=== PATIENT | female | born 1980 | race Two or more races ===

== ENCOUNTER 2017-08-15 20:56 | Emergency (ER) | payer OTHER ==
[2017-08-16 00:20] VITALS: BP 139/86
== END 2017-08-16 00:20 | disposition left against medical advice (07) ==
LOC: ED 20:56
DX: R04.0 Epistaxis (principal); Z53.21 Procedure and treatment not carried out due to patient leaving prior to being seen by health care provider

== ENCOUNTER 2017-08-17 17:47 | Emergency (ER) | payer OTHER ==
[~2017-08-17] VITALS: Ht 160 cm; Wt 67.6 kg
[2017-08-17 17:51] VITALS: BP 129/86
== END 2017-08-17 21:42 | disposition left against medical advice (07) ==
LOC: ED 17:47
DX: Z53.21 Procedure and treatment not carried out due to patient leaving prior to being seen by health care provider (principal)

== ENCOUNTER 2017-08-20 16:06 | Emergency (ER) | payer OTHER ==
[~2017-08-20] VITALS: Ht 160 cm; Wt 65.3 kg
[2017-08-20 17:17] LABS: BASOPHIL % 0.5 % (0-2); CALCIUM 9.7 mg/dL (8.5-10.1); CARBON DIOXIDE 25.4 mmol/L (21-32); CHLORIDE SERUM 100 mmol/L (98-107); CREATININE SERUM 0.5 mg/dL (0.6-1.0); GFR1 > 60 mL/min; GLUCOSE SERUM 106 mg/dL (74-106); POTASSIUM SERUM 3.4 mmol/L (3.5-5.1); RED CELL DISTRIBUTION WIDTH 12.8 % (11.5-14.5); SODIUM SERUM 136 mmol/L (136-145)
[2017-08-20 17:18] LABS: PLATELET COUNT 439 x10^3mcL (130-400)
[2017-08-20 17:23] LABS: ALBUMIN 3.9 g/dL (3.4-5.0); ALKALINE PHOSPHATASE 72 U/L (46-116); ALT/SGPT 36 U/L (14-59); AST/SGOT 20 U/L (15-37); BILIRUBIN TOTAL 0.5 mg/dL (0.20-1.00); TOTAL PROTEIN, SERUM 7.8 g/dL (6.4-8.2)
[2017-08-20 18:30] VITALS: BP 128/74
== END 2017-08-20 18:30 | disposition home or self-care (01) ==
LOC: ED 16:06
PROVIDERS: Emergency Medicine
DX: R00.2 Palpitations (principal); R06.00 Dyspnea, unspecified; Z79.1 Long term (current) use of non-steroidal anti-inflammatories (NSAID); Z98.890 Other specified postprocedural states
CPT/HCPCS: 36415; 83880

== ENCOUNTER 2018-09-01 07:51 | Emergency (ER) | payer OTHER ==
[~2018-09-01] VITALS: Ht 157.5 cm; Wt 65.8 kg
[2018-09-01 07:57] VITALS: Ht 157.5 cm; Wt 65.8 kg
[2018-09-01 08:42] LABS: BASOPHIL % 1.2 % (0-2); PLATELET COUNT 375 x10^3mcL (130-400)
[2018-09-01 08:45] LABS: RED CELL DISTRIBUTION WIDTH 15.3 % (11.5-14.5)
[2018-09-01 08:48] LABS: microscopic required? YES; urine erythrocyte TRACE (NEGATIVE)
[2018-09-01 08:56] LABS: CARBON DIOXIDE 24.2 mmol/L (21-32); CHLORIDE SERUM 100 mmol/L (98-107); CREATININE SERUM 0.6 mg/dL (0.6-1.0); GFR1 > 60 mL/min; GLUCOSE SERUM 95 mg/dL (74-106); POTASSIUM SERUM 3.9 mmol/L (3.5-5.1); SODIUM SERUM 136 mmol/L (136-145)
[2018-09-01 09:01] LABS: ALBUMIN 4.6 g/dL (3.4-5.0); ALKALINE PHOSPHATASE 71 U/L (46-116); ALT/SGPT 34 U/L (14-59); AST/SGOT 19 U/L (15-37); BILIRUBIN TOTAL 0.5 mg/dL (0.20-1.00); LIPASE 255 IU/L (73-393); TOTAL PROTEIN, SERUM 8.2 g/dL (6.4-8.2)
[2018-09-01 11:24] VITALS: BP 129/76
== END 2018-09-01 11:24 | disposition home or self-care (01) ==
LOC: ED 07:51
PROVIDERS: Emergency Medicine
DX: N20.0 Calculus of kidney (principal); F17.200 Nicotine dependence, unspecified, uncomplicated; Z98.82 Breast implant status; Z98.890 Other specified postprocedural states
CPT/HCPCS: 99406; J1885; J2270; J2405; Q0092

== ENCOUNTER 2018-11-28 15:03 | Emergency (ER) | payer OTHER ==
[~2018-11-28] VITALS: Ht 157.5 cm; Wt 66.2 kg
[2018-11-28 15:08] VITALS: Ht 157.5 cm; Wt 66.2 kg
[2018-11-28 16:35] VITALS: BP 111/80
== END 2018-11-28 16:50 | disposition home or self-care (01) ==
LOC: ED 15:03
DX: M77.9 Enthesopathy, unspecified (principal); F17.210 Nicotine dependence, cigarettes, uncomplicated
CPT/HCPCS: J1885

== ENCOUNTER 2019-02-20 21:30 | Emergency (ER) | payer OTHER ==
[~2019-02-20] VITALS: Ht 157.5 cm; Wt 68.5 kg
[2019-02-20 21:38] VITALS: Ht 157.5 cm; Wt 68.5 kg
[2019-02-20 23:13] LABS: BASOPHIL % 1.1 % (0-2); PLATELET COUNT 343 x10^3mcL (130-400); RED CELL DISTRIBUTION WIDTH 13.8 % (11.5-14.5)
[2019-02-20 23:15] LABS: CALCIUM 9.3 mg/dL (8.5-10.1); CARBON DIOXIDE 23.9 mmol/L (21-32); CHLORIDE SERUM 106 mmol/L (98-107); CREATININE SERUM 0.5 mg/dL (0.6-1.0); GFR1 > 60 mL/min; GLUCOSE SERUM 98 mg/dL (74-106); SODIUM SERUM 140 mmol/L (136-145)
[2019-02-20 23:20] LABS: ALBUMIN 3.7 g/dL (3.4-5.0); ALKALINE PHOSPHATASE 62 U/L (46-116); ALT/SGPT 31 U/L (14-59); AST/SGOT 14 U/L (15-37); LIPASE 152 IU/L (73-393); TOTAL PROTEIN, SERUM 6.9 g/dL (6.4-8.2)
[2019-02-21 00:21] VITALS: BP 127/89
== END 2019-02-21 00:22 | disposition home or self-care (01) ==
LOC: ED 21:30
PROVIDERS: Emergency Medicine
DX: K29.00 Acute gastritis without bleeding (principal); H10.9 Unspecified conjunctivitis; R31.29 Other microscopic hematuria
CPT/HCPCS: J2270

== ENCOUNTER 2019-08-15 12:09 | Emergency (ER) | payer OTHER ==
[~2019-08-15] VITALS: Ht 157.5 cm; Wt 66.7 kg
[2019-08-15 12:19] VITALS: BP 120/63; Ht 157.5 cm; Wt 66.7 kg
== END 2019-08-15 15:15 | disposition left against medical advice (07) ==
LOC: ED 12:09
DX: Z53.21 Procedure and treatment not carried out due to patient leaving prior to being seen by health care provider (principal)

== ENCOUNTER 2020-06-03 01:44 | Emergency (ER) | payer OTHER ==
[~2020-06-03] VITALS: Ht 160 cm; Wt 69.4 kg
[2020-06-03 01:56] VITALS: Ht 160 cm; Wt 69.4 kg
[2020-06-03 04:10] VITALS: BP 104/65
== END 2020-06-03 04:10 | disposition home or self-care (01) ==
LOC: ED 01:44
DX: M54.2 Cervicalgia (principal)

== ENCOUNTER 2020-07-29 22:36 | Emergency (ER) | payer OTHER ==
[~2020-07-29] VITALS: Ht 170.2 cm; Wt 81.6 kg
[2020-07-29 22:43] VITALS: Ht 170.2 cm; Wt 81.6 kg
[2020-07-29 23:37] LABS: BASOPHIL % 1.2 % (0-2); PLATELET COUNT 309 x10^3mcL (130-400); RED CELL DISTRIBUTION WIDTH 13.8 % (11.5-14.5)
[2020-07-30 00:09] LABS: CALCIUM 8.5 mg/dL (8.5-10.1); CARBON DIOXIDE 24.7 mmol/L (21-32); CHLORIDE SERUM 108 mmol/L (98-107); CREATININE SERUM 0.5 mg/dL (0.6-1.0); GFR1 > 60 mL/min; GLUCOSE SERUM 136 mg/dL (74-106); SODIUM SERUM 141 mmol/L (136-145)
[2020-07-30 06:20] VITALS: BP 100/59
== END 2020-07-30 06:12 | disposition home or self-care (01) ==
LOC: ED 22:36
PROVIDERS: Emergency Medicine
DX: G92 Toxic encephalopathy (principal); F10.129 Alcohol abuse with intoxication, unspecified; Z98.890 Other specified postprocedural states; Z41.1 Encounter for cosmetic surgery; Y90.6 Blood alcohol level of 120-199 mg/100 ml
CPT/HCPCS: G0480; J7030